=== PATIENT | female | born 1945 | race Caucasian/White ===

== ENCOUNTER 2018-08-27 13:40 | Outpatient (CLI) | payer MEDICARE ==
--- NOTE | 2018-08-27 15:41 | RAD ---
TWO VIEW RIGHT HUMERUS: Indication: Right arm pain. FINDINGS: There is no fracture or dislocation. Osseous degenerative change is seen, regional. IMPRESSION: No acute osseous abnormality of the right humerus. POS: [facility]
--- NOTE | 2018-08-27 15:45 | RAD ---
RIGHT SHOULDER THREE VIEW SERIES: Indication: Fall. Weakness, pain. FINDINGS: There is mild osteoarthritis. No fracture or dislocation. IMPRESSION: No acute osseous abnormality right shoulder. POS: [facility]
--- NOTE | 2018-08-27 16:09 | RAD ---
CERVICAL SPINE THREE VIEWS: History: Fall. Comparison: None. FINDINGS: On the open mouth projection, questionable fracture involving the right lateral mass of C1. Limited evaluation of the pre dental space on the lateral projection. No prevertebral soft tissue swelling. C2 through C6 demonstrates preservation of vertebral body height. There is spondylolisthesis at C4-5 and C5-6. On the AP projection, There is facet hypertrophy. No malalignment. IMPRESSION: 1. Possible fracture involving the right lateral mass of C1. Better interrogation with cervical spine CT is recommended. 2. Report called to Dr. Mcintyre 08-27-18 at 2:19 p.m. Code CR POS: [facility] [place]
--- NOTE | 2018-08-27 19:04 | CT ---
CT CERVICAL SPINE WITH CORONAL AND SAGITTAL REFORMATIONS: Date: 08/27/18 HISTORY: Fall, neck pain. FINDINGS/IMPRESSION: Multilevel degenerative changes are seen. No fracture is identified. There is minimal retrolisthesis of C5 over C6 and minimal anterolisthesis of C7 over T1 vertebral bodies. No facet malalignment is se en. The study was interpreted in consultation with Dr. Parag Smalls, who concurs. POS: [facility]
== END 2018-08-27 13:41 | disposition home or self-care (01) ==
LOC: NAV RAD 13:40
PROVIDERS: ATTEND Family Medicine
DX: M54.2 Cervicalgia (principal); G89.29 Other chronic pain; R29.6 Repeated falls; M25.511 Pain in right shoulder; M47.812 Spondylosis without myelopathy or radiculopathy, cervical region; M43.12 Spondylolisthesis, cervical region; M43.13 Spondylolisthesis, cervicothoracic region
CPT/HCPCS: 72040; 72125

== ENCOUNTER 2020-08-15 07:45 | Emergency (ER) | payer MEDICARE ==
[2020-08-16 19:23] LABS: SARS-CoV-2 MS2 Positive; SARS-CoV-2 N Gene Negative; SARS-CoV-2 S Gene Negative; SARS-CoV-2 by NAA Not Detected (NotDetected); SARS-CoV-2 orf1ab Negative
== END 2020-08-15 08:40 | disposition home or self-care (01) ==
LOC: NAV ERS 07:45
DX: R19.7 Diarrhea, unspecified (principal); Z20.828 Contact with and (suspected) exposure to other viral communicable diseases; E78.5 Hyperlipidemia, unspecified; E78.00 Pure hypercholesterolemia, unspecified; Z87.891 Personal history of nicotine dependence; Z79.899 Other long term (current) drug therapy; Z79.82 Long term (current) use of aspirin
CPT/HCPCS: 99284; U0003; 87635